=== PATIENT | male | born 1940 | race Caucasian/White ===

== ENCOUNTER 2016-12-19 07:27 | Outpatient (CLI) | payer MEDICARE, BC | END 2016-12-19 07:28 | disposition home or self-care (01) | DX: R60.0 Localized edema (principal); I25.10 Atherosclerotic heart disease of native coronary artery without angina pectoris; G62.9 Polyneuropathy, unspecified ==

== ENCOUNTER 2018-12-17 11:25 | Emergency (ER) | payer MEDICARE, BC ==
[2018-12-17 12:44] LABS: BASOPHILS % (AUTO) 0.8 %; EOSINOPHILS # (AUTO) 0.1 10^3/uL (0.0-0.7); EOSINOPHILS % (AUTO) 3.3 %; HGB - HEMOGLOBIN 14.4 g/dL (14.0-18.0); LYMPHOCYTES # (AUTO) 1.3 10^3/uL (1.5-3.5); LYMPHOCYTES % (AUTO) 31.3 %; MEAN CORPUSCULAR HEMOGLOBIN 31.4 pg (27.0-31.0); MEAN CORPUSCULAR HGB CONC 33.4 g/dL (32.0-36.0); MEAN PLATELET VOLUME 8.7 fL (7.4-11.4); MONOCYTES # (AUTO) 0.8 10^3/uL (0.0-1.0); MONOCYTES % (AUTO) 19.1 %; NEUTROPHILS # (AUTO) 1.9 10^3/uL (1.5-6.6); NEUTROPHILS % (AUTO) 45.5 %; PLT - PLATELET COUNT 192 10^3/uL (130-450); RED BLOOD COUNT 4.58 10^6/uL (4.70-6.10); RED CELL DISTRIBUTION WIDTH 13.5 % (12.0-15.0); WHITE BLOOD COUNT 4.3 x10^3/uL (4.8-10.8)
[2018-12-17 12:56] LABS: ALBUMIN 3.6 g/dL (3.2-5.5); ALBUMIN/GLOBULIN RATIO 1.4 (1.0-2.2); BILIRUBIN,TOTAL 0.6 mg/dL (0.2-1.0); CALCIUM 8.1 mg/dL (8.5-10.3); CREATININE 1.7 mg/dL (0.6-1.2); TOTAL PROTEIN 6.1 g/dL (6.7-8.2)
[2018-12-17] MEDS ORDERED: SODIUM CHLORIDE 0.9% 1,000 ML IV ONE (16:19)
--- NOTE | 2018-12-17 16:22 | ED Physician Documentation ---
PD HPI NVD - Stated complaint Stated Complaint: N/V/D - Chief complaint Chief Complaint: Abd Pain - History obtained from History obtained from: Patient, Family - History of Present Illness Timing - onset: How many days ago (3) Timing - duration: Days (3) Timing - details: Gradual onset, Still present Associated symptoms: Fever, Abdominal pain, Loss of appetite Contributing factors: Sick contact (at [facility] the host was sick with similar and his daughter became ill with similar.) Improved by: Laying still, Meds Worsened by: Eating Similar symptoms before: Has not had sx before Recently seen: Not recently seen - Additonal information Additional information: Previously well 78-year-old male has developed nausea vomiting and diarrhea. This started about 3 days ago and has persisted. He states that he is not only vomiting but everything that he does eat or drink goes straight through him. He has tried 3 or 4 doses of Imodium and this is not been successful at abating his symptoms. He does feel dehydrated. Review of Systems Constitutional: reports: Fever, Chills Eyes: denies: Decreased vision Ears: denies: Ear pain Nose: denies: Rhinorrhea / runny nose, Congestion Throat: denies: Sore throat Cardiac: denies: Chest pain / pressure, Palpitations Respiratory: reports: Cough. denies: Dyspnea GI: reports: Abdominal Pain, Nausea, Vomiting, Diarrhea : denies: Dysuria, Frequency Skin: denies: Rash Musculoskeletal: denies: Neck pain, Back pain, Extremity pain Neurologic: denies: Generalized weakness, Focal weakness, Numbness PD PAST MEDICAL HISTORY - Past Medical History Cardiovascular: Hypertension, High cholesterol, Coronary artery disease Respiratory: None Endocrine/Autoimmune: None GI: GERD : None HEENT: None Psych: None Musculoskeletal: Osteoarthritis, Fatigue, Chronic back pain Derm: None - Past Surgical History General: Colonoscopy, EGD Ortho: Other Cardiovascular: CABG, Coronary stent, Cardiac catheterization, Vascular surgery, Other Neuro: Other - Present Medications Home Medications: Ambulatory Orders Medication Instructions Recorded Confirmed Aspirin 81 mg ORAL DAILY 04/19/15 02/29/16 Clopidogrel Bisulfate [Plavix] 75 mg ORAL DAILY 04/19/15 02/29/16 Losartan [Cozaar] 100 mg ORAL DAILY 04/19/15 02/29/16 Rosuvastatin Calcium [Crestor] 40 mg ORAL DAILY 04/19/15 02/29/16 Ferrous Sulfate 325 mg PO DAILY 02/29/16 02/29/16 Gabapentin [Neurontin] 900 mg PO TID 02/29/16 02/29/16 Ondansetron Odt [Zofran] 4 mg TL Q6H PRN #10 tablet 12/17/18 - Allergies Allergies/Adverse Reactions: Allergies Allergy/AdvReac Type Severity Reaction Status Date / Time honey Allergy Anaphylaxis Verified 12/17/18 11:45 minocycline Allergy Itching Verified 12/17/18 11:45 PD ED PE NORMAL - Vitals Vital signs reviewed: Yes (hypertensive mild ) - General General: Alert and oriented X 3, No acute distress, Well developed/nourished - HEENT HEENT: Atraumatic, PERRL, EOMI - Neck Neck: Supple, no meningeal sign, No bony TTP - Cardiac Cardiac: RRR, No murmur - Respiratory Respiratory: No respiratory distress, Clear bilaterally - Abdomen Abdomen: Soft, Non tender - Back Back: No CVA TTP, No spinal TTP - Derm Derm: Other (skin is with poor tugor and the fingers are blanched sencondary to dehydration ) - Extremities Extremities: No deformity, No edema - Neuro Neuro: Alert and oriented X 3, 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, No motor deficit, No sensory deficit, Normal speech Eye Opening: Spontaneous Motor: Obeys Commands Verbal: Oriented GCS Score: 15 - Psych Psych: Normal mood, Normal affect Results - Vitals Vitals: Vital Signs - 24 hr 12/17/18 12/17/18 12/17/18 11:42 13:49 15:17 Temperature 36.2 C L 36.3 C L 36.4 C L Heart Rate 84 72 68 Respiratory 18 12 12 Rate Blood Pressure 128/81 H 145/94 H 139/94 H O2 Saturation 100 100 100 12/17/18 16:59 Temperature 36.1 C L Heart Rate 61 Respiratory 17 Rate Blood Pressure 132/71 H O2 Saturation 100 Oxygen O2 Source Room air - Labs Labs: Laboratory Tests 12/17/18 12/17/18 12/17/18 11:47 12:30 12:30 WBC 4.3 L RBC 4.58 L Hgb 14.4 Hct 43.1 MCV 94.0 MCH 31.4 H MCHC 33.4 RDW 13.5 Plt Count 192 MPV 8.7 Neut # (Auto) 1.9 Lymph # (Auto) 1.3 L Ritchie # (Auto) 0.8 Eos # (Auto) 0.1 Baso # (Auto) 0.0 Absolute Nucleated RBC 0.00 Nucleated RBC % 0.1 Sodium 138 Potassium 3.9 Chloride 110 Carbon Dioxide 21 Anion Gap 7.0 BUN 33 H Creatinine 1.7 H Estimated GFR (MDRD) 39 L Glucose 87 Calcium 8.1 L Total Bilirubin 0.6 AST 23 ALT 22 Alkaline Phosphatase 54 Troponin I Total Protein 6.1 L Albumin 3.6 Globulin 2.5 Albumin/Globulin Ratio 1.4 Lipase 20 L Influenza A (Rapid) Negative Influenza B (Rapid) Negative 12/17/18 16:53 WBC RBC Hgb Hct MCV MCH MCHC RDW Plt Count MPV Neut # (Auto) Lymph # (Auto) Ritchie # (Auto) Eos # (Auto) Baso # (Auto) Absolute Nucleated RBC Nucleated RBC % Sodium Potassium Chloride Carbon Dioxide Anion Gap BUN Creatinine Estimated GFR (MDRD) Glucose Calcium Total Bilirubin AST ALT Alkaline Phosphatase Troponin I < 0.04 Total Protein Albumin Globulin Albumin/Globulin Ratio Lipase Influenza A (Rapid) Influenza B (Rapid) Procedures - IVC sono (time) 1620 Bedside IVC sono: IVC measures (cm) (0.78), IVC collapsed c insp (cm) (complete), Dehydration (est 2 liter deficit) PD MEDICAL DECISION MAKING - ED course Complexity details: considered differential, d/w patient, d/w family ED course: 78-year-old male with viral gastroenteritis is dehydrated and he is administered normal saline by vein. Departure - Departure Disposition: 01 Home, Self Care Clinical Impression: Gastroenteritis Instructions: ED Gastroenteritis Viral Follow-Up: Masood Luther MD [Primary Care Provider] - Prescriptions: Ondansetron Odt [Zofran] 4 mg TL Q6H PRN #10 tablet PRN Reason: Nausea / Vomiting
[2018-12-17 18:31] LABS: GLUCOSE, URINE (UA) NEGATIVE (NEGATIVE); KETONES,URINE (UA) 15 mg/dL (NEGATIVE); LEUKOCYTE ESTERASE, URINE NEGATIVE (NEGATIVE); NITRITE,URINE NEGATIVE (NEGATIVE); OCCULT BLOOD,URINE NEGATIVE (NEGATIVE); PROTEIN,URINE NEGATIVE (NEGATIVE); UROBILINOGEN,URINE 0.2 (NORMAL) E.U./dL (NORMAL)
[2018-12-17 18:33] VITALS: BP 178/60
[2018-12-17 18:42] LABS: BILIRUBIN,URINE NEGATIVE (NEGATIVE); CLARITY,URINE CLEAR (CLEAR); ICTOTEST,URINE NEGATIVE
== END 2018-12-17 18:33 | disposition home or self-care (01) ==
LOC: ED 11:25
DX: K52.9 Noninfective gastroenteritis and colitis, unspecified (principal); E86.0 Dehydration; I25.10 Atherosclerotic heart disease of native coronary artery without angina pectoris; I10 Essential (primary) hypertension; E78.00 Pure hypercholesterolemia, unspecified; Z95.1 Presence of aortocoronary bypass graft; Z95.5 Presence of coronary angioplasty implant and graft; Z79.82 Long term (current) use of aspirin
CPT/HCPCS: 36415; 80053; 81001; 81003; 83690; 84484; 85025; 87086; 87275; 87276; 96360; 99283; 99284

== ENCOUNTER 2018-12-31 07:01 | Outpatient (CLI) | payer MEDICARE, BC ==
[2018-12-31 14:19] LABS: BASOPHILS # (AUTO) 0.1 10^3/uL (0.0-0.1); BASOPHILS % (AUTO) 1.2 %; EOSINOPHILS # (AUTO) 0.2 10^3/uL (0.0-0.7); EOSINOPHILS % (AUTO) 4.8 %; HGB - HEMOGLOBIN 13.4 g/dL (14.0-18.0); LYMPHOCYTES # (AUTO) 1.6 10^3/uL (1.5-3.5); LYMPHOCYTES % (AUTO) 34.1 %; MEAN CORPUSCULAR HEMOGLOBIN 31.4 pg (27.0-31.0); MEAN CORPUSCULAR HGB CONC 32.7 g/dL (32.0-36.0); MEAN PLATELET VOLUME 9.4 fL (7.4-11.4); MONOCYTES # (AUTO) 0.5 10^3/uL (0.0-1.0); MONOCYTES % (AUTO) 10.3 %; NEUTROPHILS # (AUTO) 2.4 10^3/uL (1.5-6.6); NEUTROPHILS % (AUTO) 49.6 %; PLT - PLATELET COUNT 233 10^3/uL (130-450); RED BLOOD COUNT 4.25 10^6/uL (4.70-6.10); RED CELL DISTRIBUTION WIDTH 13.9 % (12.0-15.0); WHITE BLOOD COUNT 4.8 x10^3/uL (4.8-10.8)
[2018-12-31 14:42] LABS: ALBUMIN 3.5 g/dL (3.2-5.5); ALBUMIN/GLOBULIN RATIO 1.4 (1.0-2.2); ALKALINE PHOSPHATASE 61 IU/L (42-121); ALT ALANINE AMINOTRANSFERASE 26 IU/L (10-60); AST ASPARTATE AMINOTRANSFERASE 25 IU/L (10-42); BILIRUBIN,TOTAL 0.6 mg/dL (0.2-1.0); BUN - BLOOD UREA NITROGEN 21 mg/dL (6-20); CALCIUM 8.4 mg/dL (8.5-10.3); CARBON DIOXIDE - CO2 25 mmol/L (21-32); CHLORIDE 109 mmol/L (101-111); CHOL/HDL RATIO 2.9 (<5.0); CHOLESTEROL 105 mg/dL; CREATININE 1.2 mg/dL (0.6-1.2); GFR - MDRD 58 (>89); GLUCOSE 101 mg/dL (70-100); HDL CHOLESTEROL 36 mg/dL; LDL CHOLESTEROL,CALCULATED 48 mg/dL; LDL/HDL RATIO 1.3 (<3.6); SODIUM 143 mmol/L (135-145); VLDL CHOLESTEROL 21 mg/dL
== END 2018-12-31 07:02 | disposition home or self-care (01) ==
LOC: LAB.WCP 07:01
PROVIDERS: ATTEND Family Medicine
DX: N18.9 Chronic kidney disease, unspecified (principal); I25.10 Atherosclerotic heart disease of native coronary artery without angina pectoris
CPT/HCPCS: 36415; 80053; 80061; 83721; 85025

== ENCOUNTER 2021-04-19 14:47 | Outpatient (CLI) | payer MEDICARE, BC ==
[2021-04-19 15:23] LABS: CHOL/HDL RATIO 3.1 (<5.0); CHOLESTEROL 129 mg/dL; HDL CHOLESTEROL 41 mg/dL; LDL CHOLESTEROL,CALCULATED 50 mg/dL; LDL/HDL RATIO 1.2 (<3.6); TRIGLYCERIDES 191 mg/dL; VLDL CHOLESTEROL 38 mg/dL
== END 2021-04-19 14:48 | disposition home or self-care (01) ==
LOC: LAB 14:47
PROVIDERS: ATTEND Internal Medicine Interventional Cardiology
DX: I25.10 Atherosclerotic heart disease of native coronary artery without angina pectoris (principal)
CPT/HCPCS: 36415; 80061; 83721

== ENCOUNTER 2024-07-05 10:01 | Outpatient (CLI) | payer MEDICARE, BC ==
[2024-07-05 10:36] LABS: CALCIUM 8.3 mg/dL (8.5-10.3); CREATININE 1.7 mg/dL (0.6-1.3); POTASSIUM 4.4 mmol/L (3.5-4.5)
== END 2024-07-05 10:02 | disposition home or self-care (01) ==
LOC: LAB 10:01
PROVIDERS: ATTEND Physician Assistant
DX: I25.5 Ischemic cardiomyopathy (principal)
CPT/HCPCS: 36415; 80048